=== PATIENT | male | born 1985 | race Caucasian/White ===

== ENCOUNTER 2022-04-26 14:22 | Observation (INO) | payer OTHER ==
[~2022-04-26] VITALS: Ht 180.3 cm; Wt 72.2 kg
[2022-04-26 15:31] LABS: BASOPHILS ABSOLUTE AUTO 0.04 K/mm3 (0.00-0.23); BASOPHILS PERCENT AUTO 0 % (0-2); EOSINOPHILS ABSOLUTE AUTO 0.04 K/mm3 (0.00-0.68); EOSINOPHILS PERCENT AUTO 0 % (0-6); Hematocrit 40.8 % (37.0-53.0); Hemoglobin 13.4 g/dL (13.5-17.5); IMMATURE GRAN ABSOLUTE AUTO 0.03 K/mm3 (0.00-0.10); IMMATURE GRAN PERCENT AUTO 0 % (0-1); LYMPHOCYTES ABSOLUTE AUTO 1.86 K/mm3 (0.84-5.20); LYMPHOCYTES PERCENT AUTO 18 % (21-46); MONOCYTES ABSOLUTE AUTO 1.39 K/mm3 (0.16-1.47); MONOCYTES PERCENT AUTO 13 % (4-13); Mean Corpuscular HGB 27.3 pg (26.0-34.0); Mean Corpuscular HGB Conc 32.8 g/dL (31.5-36.5); Mean Corpuscular Volume 83 fL (80-100); Mean Platelet Volume 10.2 fL (9.1-12.4); NEUTROPHILS ABSOLUTE AUTO 7.17 K/mm3 (1.96-9.15); NEUTROPHILS PERCENT AUTO 68 % (41-73); Platelet Count 394 K/mm3 (150-400); RDW Coefficient Variation 14.5 % (11.7-14.2); RDW Standard Deviation 44.1 fL (35.1-46.3); White Blood Cell Count 10.53 K/mm3 (4.00-11.30)
[2022-04-26] MEDS ORDERED: HUMIRA40 MG/0.2 INJ (15:45)
[2022-04-26 15:53] LABS: Albumin, Blood 3.9 g/dL (3.4-5.0); Albumin/Globulin Ratio 0.8 (0.8-1.8); Bilirubin, Total 0.4 mg/dL (0.1-1.0); Bun/Creatinine Ratio 26.1 (12.0-20.0); Creatinine, Blood 0.73 mg/dL (0.60-1.20); Globulin, Blood 4.8 g/dL (2.2-4.0); Potassium, Blood 3.8 mmol/L (3.5-5.5); Total Protein, Blood 8.7 g/dL (6.4-8.2)
[2022-04-26] MEDS ORDERED: AMLO5 PO (23:00)
[2022-04-26] MEDS ORDERED: OXYC5 PO (23:02)
--- NOTE | 2022-04-26 23:07 | NUR ---
ADMISSION: PATIENT IS RECIEVED FROM ER VIA STRETCHER. DRY HEAVING, STATES "I AM REALLY NAUSEATED AND NEED TO GET IN THE SHOWER, THAT IS THE ONLY THINK THAT HELPS." HEART RATE IS 49 APICAL. NO PAIN AT THIS TIME. PATIENT IS ORIENTED TO THE ROOM AND CALL [facility].
--- NOTE | 2022-04-27 00:25 | NUR ---
CARDIAC: APICAL HR IS 49 AND REGULAR, PATIENT IS ASYMPTOMATIC AND SAYS HE IS A DAILY RUNNER. DR WATT IS NOTIFIED, NO NEW ORDERS GIVEN. CONTINUE TO MONITOR WITH VS ORDERED.
--- NOTE | 2022-04-27 07:53 | NUR ---
SHIFT SUMMARY: PATIENT STATED THAT "A SHOWER IS THE ONLY WAY TO EASY THE NAUSEA". PATIENT WAS GIVEN SUPPLIES FOR THE SHOWER AND IT DID PRODUCE GOOD EFFECT. PATIENT THEN ASKED FOR A SANDWICH AND SODA, ATE 100%. IVF INFUSING PER MD ORDER. PATIENT REPORTED HAVING A BM IN THE BATHOOM DURING THE NIGHT. UTILITY BILL COLLECTOR DID MOT OBSERVE BM. MEDICATED ONCE WITH OXYCODONE AND TYLENOL WITH GOOD EFFECT.
[2022-04-27] MEDS ORDERED: ATEN25 PO (14:40)
[2022-04-27] MEDS ORDERED: ACET325 PO (14:40)
[2022-04-27] MEDS ORDERED: ORTIKOS9 M1 PO (14:42)
[2022-04-27] MEDS ORDERED: METO10 PO (14:43)
[2022-04-27] MEDS ORDERED: ONDA4ODT PO (14:44)
--- NOTE | 2022-04-27 15:08 | NUR ---
DISCHARGE SUMMARY: PATIENT DISCHARGE HOME. DISCHARGE PACKET/INSTRUCTION, AND HARD SCRIPTS GIVEN TO PATIENT. IV WAS DC'D. EDUCATE PATIENT ADMITTING DIAGNOSIS, S/S AND NEW PRESCRIPTION. PATIENT DECLINE TO BE TRANSPORTED VIA W/C AND ASSISTANCE. RX WAS FAX TO [facility]. ALL QUESTIONS AND CONCERNS WAS ANSWERED. PATIENT SHOWS UNDERSTANDING.
== END 2022-04-27 15:20 | disposition home or self-care (01) ==
LOC: ER 14:22 → MEDS 14:23 → ENPENDDIS 04-27 13:50 → MEDS 04-27 15:20
PROVIDERS: Physician Assistant; ADMIT Internal Medicine
DX: K50.90 Crohn's disease, unspecified, without complications (principal); I10 Essential (primary) hypertension; G89.29 Other chronic pain; R06.00 Dyspnea, unspecified; F11.20 Opioid dependence, uncomplicated; Z88.8 Allergy status to other drugs, medicaments and biological substances; Z88.6 Allergy status to analgesic agent
CPT/HCPCS: 71045; 74177; 80053; 83605; 83690; 85025; 85651; 86140; A9270; J0500; J1650; J2405; J2920; J3010; J7030; J7512; Q9967

== ENCOUNTER 2022-05-02 11:49 | Emergency (ER) | payer OTHER ==
[~2022-05-02] VITALS: Ht 180.3 cm; Wt 68.0 kg
[~2022-05-02 11:49] MED LIST: ACET325 PO; AMLO5 PO; ATEN25 PO; HUMIRA40 MG/0.2 INJ; METO10 PO; ONDA4ODT PO; ORTIKOS9 M1 PO; OXYC5 PO
[2022-05-02 13:31] LABS: BASOPHILS ABSOLUTE AUTO 0.04 K/mm3 (0.00-0.23); BASOPHILS PERCENT AUTO 0 % (0-2); EOSINOPHILS ABSOLUTE AUTO 0.01 K/mm3 (0.00-0.68); EOSINOPHILS PERCENT AUTO 0 % (0-6); Hematocrit 47.3 % (37.0-53.0); Hemoglobin 15.2 g/dL (13.5-17.5); IMMATURE GRAN PERCENT AUTO 1 % (0-1); LYMPHOCYTES ABSOLUTE AUTO 2.65 K/mm3 (0.84-5.20); LYMPHOCYTES PERCENT AUTO 14 % (21-46); MONOCYTES ABSOLUTE AUTO 1.92 K/mm3 (0.16-1.47); MONOCYTES PERCENT AUTO 10 % (4-13); Mean Corpuscular HGB 26.3 pg (26.0-34.0); Mean Corpuscular HGB Conc 32.1 g/dL (31.5-36.5); Mean Corpuscular Volume 82 fL (80-100); Mean Platelet Volume 9.7 fL (9.1-12.4); NEUTROPHILS ABSOLUTE AUTO 13.75 K/mm3 (1.96-9.15); NEUTROPHILS PERCENT AUTO 75 % (41-73); Platelet Count 642 K/mm3 (150-400); RDW Coefficient Variation 14.6 % (11.7-14.2); RDW Standard Deviation 43.8 fL (35.1-46.3); Red Blood Cell Count 5.77 M/mm3 (4.30-5.90); White Blood Cell Count 18.47 K/mm3 (4.00-11.30)
[2022-05-02 14:01] LABS: Albumin, Blood 4.6 g/dL (3.4-5.0); Albumin/Globulin Ratio 0.9 (0.8-1.8); Bilirubin, Total 0.4 mg/dL (0.1-1.0); Bun/Creatinine Ratio 29.9 (12.0-20.0); Creatinine, Blood 1.17 mg/dL (0.60-1.20); Globulin, Blood 5.1 g/dL (2.2-4.0); Potassium, Blood 4.4 mmol/L (3.5-5.5); Total Protein, Blood 9.7 g/dL (6.4-8.2)
[2022-05-02] MEDS ORDERED: Prednisone10 MG PO (18:19)
== END 2022-05-02 21:17 | disposition home or self-care (01) ==
LOC: ER 11:49
PROVIDERS: Physician Assistant
DX: K50.10 Crohn's disease of large intestine without complications (principal); I10 Essential (primary) hypertension; Z79.899 Other long term (current) drug therapy; Z88.8 Allergy status to other drugs, medicaments and biological substances; Z88.6 Allergy status to analgesic agent
CPT/HCPCS: 36415; 74176; 80053; 83690; 85025; A9270; J2270; J2405; J2930; J7030

== ENCOUNTER 2022-05-04 06:31 | Emergency (ER) | payer OTHER ==
[~2022-05-04] VITALS: Ht 180.3 cm; Wt 68.0 kg
[~2022-05-04 06:31] MED LIST changes: +Prednisone10 MG PO
[2022-05-04 06:54] LABS: BASOPHILS ABSOLUTE AUTO 0.04 K/mm3 (0.00-0.23); BASOPHILS PERCENT AUTO 0 % (0-2); EOSINOPHILS PERCENT AUTO 1 % (0-6); Hematocrit 37.5 % (37.0-53.0); IMMATURE GRAN ABSOLUTE AUTO 0.06 K/mm3 (0.00-0.10); IMMATURE GRAN PERCENT AUTO 1 % (0-1); LYMPHOCYTES ABSOLUTE AUTO 2.91 K/mm3 (0.84-5.20); LYMPHOCYTES PERCENT AUTO 23 % (21-46); MONOCYTES PERCENT AUTO 10 % (4-13); Mean Corpuscular HGB 26.8 pg (26.0-34.0); Mean Corpuscular Volume 84 fL (80-100); Mean Platelet Volume 9.5 fL (9.1-12.4); NEUTROPHILS ABSOLUTE AUTO 8.05 K/mm3 (1.96-9.15); NEUTROPHILS PERCENT AUTO 65 % (41-73); Platelet Count 484 K/mm3 (150-400); RDW Coefficient Variation 14.4 % (11.7-14.2); RDW Standard Deviation 43.9 fL (35.1-46.3); Red Blood Cell Count 4.47 M/mm3 (4.30-5.90); White Blood Cell Count 12.46 K/mm3 (4.00-11.30)
[2022-05-04 07:11] LABS: Alanine Aminotransfer (ALT/SGP 20 U/L (12-78); Albumin, Blood 3.5 g/dL (3.4-5.0); Albumin/Globulin Ratio 0.9 (0.8-1.8); Alk Phos 68 U/L (50-136); Anion Gap 7 mmol/L (6-16); Aspartate Aminotrans (AST/SGOT 11 U/L (12-37); Bilirubin, Direct <0.1 mg/dL (0.0-0.3); Bilirubin, Indirect Unable to Calculate mg/dL (0.1-0.7); Bilirubin, Total 0.2 mg/dL (0.1-1.0); Blood Urea Nitrogen 27 mg/dL (8-24); Bun/Creatinine Ratio 28.9 (12.0-20.0); CO2, Blood 25 mmol/L (21-32); Calcium, Blood 8.6 mg/dL (8.5-10.1); Chloride, Blood 107 mmol/L (98-108); Creatinine, Blood 0.94 mg/dL (0.60-1.20); Globulin, Blood 3.7 g/dL (2.2-4.0); Glomerular Filtration Rate 109 (60-); Glucose, Blood 127 mg/dL (70-99); Potassium, Blood 4.2 mmol/L (3.5-5.5); Sodium, Blood 139 mmol/L (136-145); Total Protein, Blood 7.2 g/dL (6.4-8.2)
[2022-05-04] MEDS ORDERED: ONDA4ODT MM (10:43)
[2022-05-04] MEDS ORDERED: PROM12.5S PR (10:43)
== END 2022-05-04 11:14 | disposition home or self-care (01) ==
LOC: ER 06:31
PROVIDERS: Student in an Organized Health Care Education/Training Program
DX: R11.2 Nausea with vomiting, unspecified (principal); F12.20 Cannabis dependence, uncomplicated; K50.90 Crohn's disease, unspecified, without complications; I10 Essential (primary) hypertension; Z79.899 Other long term (current) drug therapy; Z79.52 Long term (current) use of systemic steroids; Z88.6 Allergy status to analgesic agent; Z88.8 Allergy status to other drugs, medicaments and biological substances
CPT/HCPCS: 80048; 80076; 83690; 83735; 85025; A9270; J1200; J1790; J7030

== ENCOUNTER 2023-05-29 15:10 | Emergency (ER) | payer OTHER ==
[~2023-05-29] VITALS: Ht 180.3 cm; Wt 79.4 kg
[~2023-05-29 15:10] MED LIST changes: +ONDA4ODT MM; +PROM12.5S PR
[2023-05-29 15:53] VITALS: BP 117/65
[2023-05-29] MEDS ORDERED: SUBOXONE 12 MG1 EACH SL ×2 (16:00→16:34)
== END 2023-05-29 16:39 | disposition home or self-care (01) ==
LOC: ER 15:10
DX: Z76.0 Encounter for issue of repeat prescription (principal); I10 Essential (primary) hypertension; Z88.8 Allergy status to other drugs, medicaments and biological substances; Z79.52 Long term (current) use of systemic steroids; Z79.899 Other long term (current) drug therapy
CPT/HCPCS: 99281

== ENCOUNTER 2025-06-22 11:41 | Emergency (ER) | payer OTHER ==
[~2025-06-22] VITALS: Ht 180.3 cm; Wt 74.8 kg
[~2025-06-22 11:41] MED LIST changes: +SUBOXONE 12 MG1 EACH SL
[2025-06-22 12:16] LABS: BASOPHILS ABSOLUTE AUTO 0.04 K/mm3 (0.00-0.23); BASOPHILS PERCENT AUTO 0 % (0-2); EOSINOPHILS ABSOLUTE AUTO 0.15 K/mm3 (0.00-0.68); EOSINOPHILS PERCENT AUTO 2 % (0-6); Hematocrit 40.4 % (37.0-53.0); Hemoglobin 13.8 g/dL (13.5-17.5); IMMATURE GRAN ABSOLUTE AUTO 0.02 K/mm3 (0.00-0.10); IMMATURE GRAN PERCENT AUTO 0 % (0-1); LYMPHOCYTES ABSOLUTE AUTO 2.89 K/mm3 (0.84-5.20); LYMPHOCYTES PERCENT AUTO 30 % (21-46); MONOCYTES ABSOLUTE AUTO 0.80 K/mm3 (0.16-1.47); MONOCYTES PERCENT AUTO 8 % (4-13); Mean Corpuscular HGB Conc 34.2 g/dL (31.5-36.5); Mean Corpuscular Volume 86 fL (80-100); NEUTROPHILS ABSOLUTE AUTO 5.86 K/mm3 (1.96-9.15); NEUTROPHILS PERCENT AUTO 60 % (41-73); NRBC ABSOLUTE 0.00 K/mm3 (0.00-0.02); NRBC Auto 0.0 /100 WBC (0.0-0.2); Platelet Count 282 K/mm3 (150-400); RDW Coefficient Variation 12.9 % (11.7-14.2); RDW Standard Deviation 40.5 fL (35.1-46.3)
[2025-06-22 12:43] LABS: Alanine Aminotransfer (ALT/SGP 29.0 U/L (12-78); Albumin, Blood 4.6 g/dL (3.4-5.0); Albumin/Globulin Ratio 1.3 (0.8-1.8); Anion Gap 8.0 mmol/L (3-11); Aspartate Aminotrans (AST/SGOT 28.0 U/L (12-37); Bilirubin, Total 0.8 mg/dL (0.1-1.0); Blood Urea Nitrogen 17.0 mg/dL (8-24); CO2, Blood 27.0 mmol/L (21-32); Calcium, Blood 9.4 mg/dL (8.5-10.1); Chloride, Blood 103.0 mmol/L (98-108); Creatinine, Blood 1.05 mg/dL (0.60-1.20); Globulin, Blood 3.5 g/dL (2.2-4.0); Glucose, Blood 123.0 mg/dL (70-99); Potassium, Blood 3.6 mmol/L (3.5-5.5); Sodium, Blood 134.0 mmol/L (136-145); Total Protein, Blood 8.1 g/dL (6.4-8.2)
[2025-06-22] MEDS ORDERED: Ativan1 MG PO (13:29)
[2025-06-22 13:51] VITALS: BP 124/63
== END 2025-06-22 13:51 | disposition home or self-care (01) ==
LOC: ER 11:41
PROVIDERS: Student in an Organized Health Care Education/Training Program
DX: R07.9 Chest pain, unspecified (principal); F41.9 Anxiety disorder, unspecified; I10 Essential (primary) hypertension; Z88.5 Allergy status to narcotic agent; Z88.8 Allergy status to other drugs, medicaments and biological substances; Z79.899 Other long term (current) drug therapy
CPT/HCPCS: 71046; 80053; 83690; 84484; 85025; 93005; 93010; 99285-25; A9270

== ENCOUNTER 2025-06-26 13:14 | Emergency (ER) | payer OTHER ==
[~2025-06-26] VITALS: Ht 177.8 cm; Wt 72.6 kg
[~2025-06-26 13:14] MED LIST changes: +Ativan1 MG PO
[2025-06-26 13:29] VITALS: BP 163/79
[2025-06-26] MEDS ORDERED: LORA.5 PO (15:35)
== END 2025-06-26 15:43 | disposition home or self-care (01) ==
LOC: ER 13:14
DX: F41.9 Anxiety disorder, unspecified (principal); I10 Essential (primary) hypertension; Z88.8 Allergy status to other drugs, medicaments and biological substances; Z79.899 Other long term (current) drug therapy
CPT/HCPCS: 99282; A9270